=== PATIENT | female | born 1970 | race Caucasian/White ===

== ENCOUNTER 2020-06-07 05:28 | Emergency (ER) | payer OTHER ==
[~2020-06-07 05:28] MED LIST: CLEOCIN HCL300 MG PO; NORCO 10-325 T1 EACH PO; PREDNISONE20 MG PO; ZOVIRAX 800 MG800 MG PO
== END 2020-06-07 05:32 | disposition expired ==
LOC: ER1 05:28
DX: I46.9 Cardiac arrest, cause unspecified (principal)
CPT/HCPCS: 92950; 94760; 99285